=== PATIENT | male | born 1950 ===

== ENCOUNTER 2017-10-17 08:54 | Outpatient (CLI) | payer OTHER ==
[~2017-10-17] VITALS: Ht 167.6 cm; Wt 90.7 kg
[~2017-10-17 08:54] MED LIST: ASA81 MG; CARVEDILOL3.125 MG; COZAAR25 MG; GLIMEPIRIDE4 MG; JANUMET 50-1,1 UDTAB; LIPITOR40 MG; ZETIA10 MG
== END 2017-10-17 09:15 | disposition home or self-care (01) ==
LOC: OFIC 805 08:54
DX: H93.11 Tinnitus, right ear (principal)

== ENCOUNTER 2020-12-13 08:00 | Outpatient (CLI) | payer OTHER | END 2020-12-13 08:30 | disposition home or self-care (01) | LOC: PPH VACUNA 08:00 | PROVIDERS: ATTEND Emergency Medicine Pediatric Emergency Medicine | DX: Z23 Encounter for immunization (principal) ==

== ENCOUNTER 2021-08-02 08:00 | Outpatient (CLI) | payer OTHER | END 2021-08-02 08:30 | disposition home or self-care (01) | LOC: PPH VACUNA 08:00 | PROVIDERS: ATTEND Emergency Medicine Pediatric Emergency Medicine | DX: Z23 Encounter for immunization (principal); Z71.85 Encounter for immunization safety counseling ==

== ENCOUNTER 2021-12-13 14:31 | Outpatient (CLI) | payer OTHER | END 2021-12-13 14:41 | disposition home or self-care (01) | LOC: PPH VACUNA 14:31 | PROVIDERS: ATTEND Emergency Medicine Pediatric Emergency Medicine | DX: Z23 Encounter for immunization (principal) ==

== ENCOUNTER 2023-03-12 08:05 | Outpatient (CLI) | payer OTHER | END 2023-03-12 08:10 | disposition home or self-care (01) | LOC: SONOGRAMA 08:05 | PROVIDERS: ATTEND Internal Medicine Gastroenterology | DX: R16.2 Hepatomegaly with splenomegaly, not elsewhere classified (principal) ==